=== PATIENT | male | born 1970 | race Caucasian/White ===

== ENCOUNTER 2020-11-30 09:37 | Emergency (ER) | payer OTHER ==
[~2020-11-30] VITALS: Ht 198.1 cm; Wt 104.5 kg
[2020-11-30 09:46] VITALS: TEMP 97.6
[2020-11-30 10:09] LABS: BASO % 0.5 % (0.0-2.0); EOS # 0.3 (0.0-0.7); EOS % 4.2 % (0-4.0); GRAN % 73.2 % (42.2-75.2); HEMATOCRIT 45.4 % (42.0-52.0); HEMOGLOBIN 15.5 g/dl (13.5-18.0); LYMPH # 1.3 (1.2-3.4); LYMPH % 15.6 % (20.0-51.0); MEAN CELL VOLUME 84 fl (80.0-100.0); MEAN CORPUSCULAR HEMOGLOBIN 29 pg (27.0-31.0); MEAN CORPUSCULAR HGB CONC 34 g/dl (33.0-37.0); MEAN PLATELET VOLUME 9.1 fl (7.4-10.4); MONO # 0.5 (0.1-0.6); MONO % 5.9 % (1.7-9.3); PLATELET COUNT 298 K/mm3 (130-400); RED BLOOD COUNT 5.41 M/mm3 (4.20-5.60); REDCELL DISTRIBUTION WIDTH-CV 13.5 % (11.5-14.5)
[2020-11-30 10:21] LABS: ALBUMIN 4.5 gm/dL (3.5-5.0); BILIRUBIN,TOTAL 0.7 mg/dL (0.0-1.0); CALCIUM 9.1 mg/dL (8.4-10.2); CREATININE, serum 1.04 (0.66-1.25); POTASSIUM 4.6 mmol/L (3.4-5.0); TOTAL PROTEIN 7.7 gm/dL (6.4-8.2)
[2020-11-30] MEDS ORDERED: NORCO 325 MG-51 TAB PO ×2 (14:17)
[2020-11-30] MEDS ORDERED: PERCOCET 325 MG1 TA2 PO ×3 (14:20→15:15)
[2020-11-30 15:39] VITALS: BP 114/64; PULSE 64
== END 2020-11-30 15:39 | disposition home or self-care (01) ==
LOC: COL.ER 09:37
PROVIDERS: Physician Assistant
DX: S63.095A Other dislocation of left wrist and hand, initial encounter (principal); S63.094A Other dislocation of right wrist and hand, initial encounter; S01.111A Laceration without foreign body of right eyelid and periocular area, initial encounter; W17.89XA Other fall from one level to another, initial encounter
CPT/HCPCS: J1170; J3010; J7030